=== PATIENT | female | born 1970 | race Caucasian/White ===

== ENCOUNTER 2018-07-30 14:27 | Inpatient (IN) | payer MEDICAID ==
[2018-07-30 14:27] VITALS: BMI 31.3
[2018-07-30 15:04] VITALS: O2SAT 99
--- NOTE | 2018-07-30 17:51 | ED PDOC ---
HPI: Psych/Substance Abuse Time Seen by Provider: 07/30/18 15:12 Chief Complaint (Nursing): Psychiatric Evaluation Chief Complaint (Provider): Psychiatric Evaluation History Per: Patient History/Exam Limitations: no limitations Additional Complaint(s): 48 year old female, with a history of schizoaffective disorder, anxiety, and PTSD, presents to the ED saying she is off her medications for 6 months. Patient reports [place] [facility]. She states she wanted to change things up so has not seen anyone or been on medications for the past 6 months. She reports she does not feel in control and is nervous that she will hurt someone; has no direct plan. Denies suicidal ideation. PMD: Tiffanie Griffin Past Medical History Reviewed: Historical Data, Nursing Documentation, Vital Signs Vital Signs: Last Vital Signs Temp Pulse 76 07/30/18 14:58 Resp 18 07/30/18 14:58 BP 162/69 H 07/30/18 14:58 Pulse Ox 99 07/30/18 14:58 - Medical History PMH: Depression, Diabetes, Gastritis, HIV, HTN - Surgical History Surgical History: No Surg Hx - Family History Family History: States: Unknown Family Hx - Home Medications Home Medications: Ambulatory Orders Medication Instructions Recorded No Known Home Med 06/28/12 - Allergies Allergies/Adverse Reactions: Allergies Allergy/AdvReac Type Severity Reaction Status Date / Time No Known Allergies Allergy Verified 06/28/12 23:21 Review of Systems ROS Statement: Except As Marked, All Systems Reviewed And Found Negative Psych: Positive for: Other (homicidal ideation). Negative for: Suicidal ideation Physical Exam - Reviewed Nursing Documentation Reviewed: Yes Vital Signs Reviewed: Yes - Physical Exam Appears: Positive for: Non-toxic, No Acute Distress Head Exam: Positive for: ATRAUMATIC, NORMOCEPHALIC Skin: Positive for: Normal Color, Warm, Dry Eye Exam: Positive for: Normal appearance Neck: Positive for: Normal, Painless ROM Cardiovascular/Chest: Positive for: Regular Rate, Rhythm Respiratory: Positive for: Normal Breath Sounds. Negative for: Wheezing, Respiratory Distress Gastrointestinal/Abdominal: Positive for: Normal Exam, Soft. Negative for: Tenderness Extremity: Positive for: Normal ROM Neurologic/Psych: Positive for: Alert, Oriented. Negative for: Motor/Sensory Deficits - Laboratory Results Result Diagrams: 07/30/18 19:50 07/30/18 19:50 - ECG Interpretation Of ECG: NSR at 70 bpm, no acute ischemic changes, QTc 449ms O2 Sat by Pulse Oximetry: 99 (RA) Pulse Ox Interpretation: Normal Medical Decision Making Medical Decision Making: Initial Plan: --ECG --Alcohol serum stat --CMP --Drug screen --Urine --CBC --Chest X-ray --1:1 observation --Urinalysis Patient evaluated by crisis. Discussed patient with Dr. Farrell and will admit patient with diagnosis of schizoaffective disorder and major depression. 21:37 Chest X-ray showed no acute findings. Labs as above. Patient with mild hyperglycemia. AG of 10. Will give subcutaneous insulin. Will recheck sugar before patient goes to the floor. Scribe Attestation: Documented by Riccardo Sutton acting as a scribe for Siena ESCAMILLA. Provider Scribe Attestation: All medical record entries made by the Scribe were at my direction and personally dictated by me. I have reviewed the chart and agree that the record accurately reflects my personal performance of the history, physical exam, medical decision making, and the department course for this patient. I have also personally directed, reviewed, and agree with the discharge instructions Disposition - Clinical Impression Clinical Impression: Schizo affective schizophrenia, Depression - Patient ED Disposition Is Patient to be Admitted: Yes Discussed With : - Disposition Disposition Time: 21:43 Condition: STABLE
[2018-07-30 20:00] LABS: BASO % 0.6 % (0.0-2.0); EOS # 0.1 K/uL (0.0-0.7); EOS % 1.4 % (0.0-4.0); HEMOGLOBIN 14.6 g/dL (12.0-16.0); LYMPH # 2.2 K/uL (1.0-4.3); LYMPH % 39.7 % (20.0-40.0); MEAN CELL VOLUME 82.3 fl (81.0-99.0); MEAN CORPUSCULAR HEMOGLOBIN 28.1 pg (27.0-31.0); MEAN CORPUSCULAR HGB CONC 34.1 g/dL (33.0-37.0); MEAN PLATELET VOLUME 9.2 fl (7.2-11.7); MONO # 0.4 K/uL (0.0-0.8); MONO % 7.2 % (0.0-10.0); NEUT # 2.8 K/uL (1.8-7.0); NEUT % 51.1 % (50.0-75.0); NRBC % 0.2 % (0.0-0.0); RBC 5.22 Mil/uL (3.80-5.20); WHITE BLOOD COUNT 5.4 K/uL (4.8-10.8)
[2018-07-30 20:10] LABS: ALB/GLOB RATIO 1.2 (1.0-2.1); ALBUMIN 4.6 g/dL (3.5-5.0); ALT/SGPT 53 U/L (9-52); AST/SGOT 42 U/L (14-36); BLOOD UREA NITROGEN 10 mg/dl (7-17); GFR NON-AFRICAN AMERICAN > 60
[2018-07-30] MEDS ORDERED: Insulin Regular 100 units/ml IV STA (21:17)
[2018-07-30] MEDS ORDERED: Sodium Chloride 0.9% 1,000 ML IV SCH (21:30)
[2018-07-30] MEDS ORDERED: Insulin Regular 100 units/ml SC STA (21:31)
[2018-07-30 22:02] LABS: SQUAMOUS EPITHIAL 5 /hpf (0-5); URINE BACTERIA RARE (<OCC); URINE BILIRUBIN NEGATIVE (NEGATIVE); URINE BLOOD NEGATIVE (NEGATIVE); URINE CLARITY CLOUDY (Clear); URINE COLOR YELLOW (YELLOW); URINE GLUCOSE (UA) NEG (NEGATIVE); URINE LEUKOCYTE ESTERASE NEG Leu/uL (Negative); URINE PROTEIN 30 mg/dL (NEGATIVE); URINE UROBILINOGEN 0.2-1.0 mg/dL (0.2-1.0)
[2018-07-30 22:11] LABS: BARBITURATES, UR NEGATIVE (NEGATIVE); BENZODIAZEPINES, UR NEGATIVE (NEGATIVE); OPIATES, UR NEGATIVE (NEGATIVE); PHENCYCLIDINE, UR NEGATIVE (NEGATIVE)
[2018-07-30] MEDS ORDERED: DiphenhydrAMINE 50 mg/ml Inj IM PRN (23:55)
[2018-07-30] MEDS ORDERED: Magnesium Hydroxide Susp 30 ml UD PO PRN (23:55)
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
[2018-07-31] MEDS: Alum-Mag Hydrox-Simethicone Susp (30 mL) PO PRN (08:10)
[2018-07-31] MEDS: Insulin Regular 100 units/ml SC SCH ×4 (08:36→21:26)
[2018-07-31 08:54] LABS: T4 8.49 ug/dl (5.5-11.0)
--- NOTE | 2018-07-31 09:17 | RAD ---
Date of service: 07/30/2018 HISTORY: clearance COMPARISON: No prior. FINDINGS: LUNGS: No active pulmonary disease. PLEURA: No significant pleural effusion identified, no pneumothorax apparent. CARDIOVASCULAR: No aortic atherosclerotic calcification present. Normal cardiac size. No pulmonary vascular congestion. OSSEOUS STRUCTURES: No significant abnormalities. VISUALIZED UPPER ABDOMEN: Normal. OTHER FINDINGS: None. IMPRESSION: No acute cardiopulmonary disease appreciated.
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
[2018-07-31] MEDS ORDERED: Dextrose 50% SYRINGE Inj (50 ml) IV PRN (13:27)
[2018-07-31] MEDS ORDERED: Glucagon Recombinant 1 mg Inj IM PRN (13:27)
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
[2018-07-31] MEDS ORDERED: Haloperidol Lactate 2 mg/ml Liquid PO PRN (18:00)
[2018-07-31] MEDS ORDERED: Lactulose 10 gm/15 ml Syrup PO PRN (18:28)
--- NOTE | 2018-07-31 19:48 | CARD ---
APPROVED REPORT Date of service: 07/30/2018 EKG Measurement Heart [id number] MD [id number] <Conclusion> Normal sinus rhythm Normal ECG
[2018-07-31] MEDS ORDERED: Insulin Regular 100 units/ml SC STA (20:49)
[2018-08-01] MEDS: Insulin Regular 100 units/ml SC SCH ×4 (08:43→22:00)
[2018-08-01 11:24] LABS: % CD4 (T HELPER CELL) 41 Percent (30-61); % CD8 (SUPPRESSOR T CELL) 36 Percent (12-42); ABSOLUTE CD4 CELLS 800 Cells/mcL (490-1740); ABSOLUTE CD8 CELLS 701 Cells/mcL (180-1170); ABSOLUTE LYMPHOCYTES 1975 Cells/mcL (850-3900); HELPER/SUPPRESSOR RATIO 1.14 Ratio (0.86-5.00)
[2018-08-01 13:17] LABS: HEPATITIS B SURFACE AG Negative (NEGATIVE)
[2018-08-01 13:23] LABS: HEPATITIS A IGM NEGATIVE (NEGATIVE); HEPATITIS B CORE AB NEGATIVE (NEGATIVE)
[2018-08-01 14:08] LABS: HEPATITIS C ANTIBODY REACTIVE (NEGATIVE)
--- NOTE | 2018-08-01 14:47 | PCM.PYCHPN ---
Psychiatric Progress Note - Psychiatric Progress Note Patient seen today, length of contact: pt evaluated discussed with team chart reviewed Patient Chief Complaint: I still get angry Problems Identified/Issues Discussed: pt evaluated with treatment team , continues to be depressed, reported poor appetite, early insomnia, continues to experience non command auditory hallucinations, putting her down, making her irritable angry and depressed, also reported low interest and motivation, not attending to personal hygiene discussed with pt gradual increase in lexapro and risperidone and adding trazodone , no reported side effects, pt denied active thoughts of self harm on the unit, denied homicidal ideation Medical Problems: multiple hospitalizations, currently non compliant DSM 5 Symptoms Update: schizoaffective disorder Medication Change: Yes (increase risperidone ) Medical Record Reviewed: Yes Mental Status Examination - Cognitive Function Orientation: Person, Place, Situation Attention: WNL Concentration: Poor Association: WNL Fund of Knowledge: Poor Decription of patient's judgement and insights: partial insight , fair judgment - Mood Mood: Depressed, Anxious - Affect Affect: Constricted, Depressed - Speech Speech: Soft - Formal Thought Process Formal Thought Process: Hallucinations, Delusions, Paranoia - Suicidal Ideation Suicidal Ideation: No - Homicidal Ideation Homicidal Ideation: Yes Goal/Treatment Plan - Goal/Treatment Plan Need for Continued Stay: Severe depression anxiety, Discharge may exacerbated symptoms Progress Toward Problem(s) and Goals/Treatment Plan: lexapro 10mg increase gradually increase risperidone 3mg cogentin 1mg CBT group and supportive therapy
[2018-08-01] MEDS: Alum-Mag Hydrox-Simethicone Susp (30 mL) PO PRN (21:16)
[2018-08-02] MEDS: Insulin Regular 100 units/ml SC SCH ×4 (09:11→21:53)
--- NOTE | 2018-08-02 15:19 | PCM.PYCHPN ---
Psychiatric Progress Note - Psychiatric Progress Note Patient seen today, length of contact: pt evaluated discussed with team chart reviewed Patient Chief Complaint: I am so sad about my children Problems Identified/Issues Discussed: pt evaluated presenting with depressed mood and affect , tearful stating she regrets having poor relation with her children also distressed because of her financial situation, CBT provided, discussed with pt increasing dose of lexapro, also encouraged to attend groups, pt reported partial clearing of the auditory hallucinations , discussed initiating Infectous disease consult for starting HIV medications , pt denied active thoughts of self harm on the unit, denied homicidal ideation Medical Problems: multiple hospitalizations, currently non compliant Medication Change: Yes (increase lexapro) Medical Record Reviewed: Yes Mental Status Examination - Cognitive Function Orientation: Person, Place, Situation Attention: WNL Concentration: Poor Association: WNL Fund of Knowledge: Poor Decription of patient's judgement and insights: partial insight , fair judgment - Mood Mood: Depressed, Anxious - Affect Affect: Constricted, Depressed - Speech Speech: Soft - Formal Thought Process Formal Thought Process: Hallucinations, Delusions, Paranoia - Suicidal Ideation Suicidal Ideation: No - Homicidal Ideation Homicidal Ideation: Yes Goal/Treatment Plan - Goal/Treatment Plan Need for Continued Stay: Severe depression anxiety, Discharge may exacerbated symptoms Progress Toward Problem(s) and Goals/Treatment Plan: increase lexapro 15mg increase gradually risperidone 3mg cogentin 1mg CBT group and supportive therapy follow up on Infectous disease consult
--- NOTE | 2018-08-02 18:25 | CP.PCM.PN ---
Subjective - Date & Time of Evaluation Date of Evaluation: 08/02/18 Time of Evaluation: 18:10 - Subjective Subjective: I D NOTE PATIENT SEEN ,EMR REVIEWED PATIENT c HIV WHO HAS NOT TAKEN ARVs IN 3 MONTHS,BUTCD4 COUNT IS 800 VIRAL LOAD IS AWAITED SHOULD BE RESTARTED ON [facility]Vs obtain previous medication schedule patient wants to f/u c Objective - Vital Signs/Intake and Output Vital Signs (last 24 hours): Temp Pulse Resp BP Pulse Ox 98.5 F 85 16 138/82 99 08/02/18 09:11 08/02/18 09:11 08/02/18 09:11 08/02/18 09:11 07/30/18 22:43 - Medications Medications: Current Medications Acetaminophen (Tylenol 325mg Tab) 650 mg PO Q4 PRN PRN Reason: Pain 1-7 Last Admin: 07/31/18 00:52 Dose: 650 mg Al Hydrox/Mg Hydrox/Simethicone (Maalox Plus 30 Ml) 30 ml PO Q4 PRN PRN Reason: Dyspepsia Last Admin: 08/01/18 21:16 Dose: 30 ml Benztropine Mesylate (Cogentin) 1 mg PO HS SURINDER Last Admin: 08/01/18 21:06 Dose: 1 mg Dextrose (Dextrose 50% Inj) 0 ml IV STAT PRN; Protocol PRN Reason: Hypoglycemia Protocol Dextrose (Glutose 15) 0 gm PO ONCE PRN; Protocol PRN Reason: Hypoglycemia Protocol Diphenhydramine HCl (Benadryl) 50 mg IM Q6 PRN PRN Reason: Extrapyramidal S/S Unable PO Diphenhydramine HCl (Benadryl) 50 mg PO Q6 PRN PRN Reason: Extrapyramidal Symptoms Last Admin: 07/31/18 17:59 Dose: 50 mg Diphenhydramine HCl (Benadryl) 50 mg PO HS PRN PRN Reason: Sleep Enalapril Maleate (Vasotec) 5 mg PO DAILY SURINDER Last Admin: 08/02/18 09:11 Dose: 5 mg Escitalopram Oxalate (Lexapro) 15 mg PO DAILY SURINDER Glucagon (Glucagen Diagnostic Kit) 0 mg IM STAT PRN; Protocol PRN Reason: Hypoglycemia Protocol Haloperidol Lactate (Haldol) 5 mg IM Q4 PRN PRN Reason: Agitation, Unable to Take PO Haloperidol Lactate (Haldol) 5 mg PO Q4 PRN PRN Reason: Agitation Last Admin: 07/31/18 17:59 Dose: 5 mg Insulin Human Regular (Humulin R) 0 units SC [facility]; Protocol Last Admin: 08/02/18 17:08 Dose: 3 u Lactulose (Enulose) 10 gm PO DAILY PRN PRN Reason: Constipation Lorazepam (Ativan) 2 mg IM Q6 PRN PRN Reason: Anxiety/Agitation,Unable PO Lorazepam (Ativan) 1 mg PO Q8 PRN PRN Reason: Anxiety/Agitation Last Admin: 07/31/18 17:08 Dose: 1 mg Magnesium Hydroxide (Milk Of Magnesia) 30 ml PO HS PRN PRN Reason: Constipation Metformin HCl (Glucophage) 850 mg PO BIDWM [facility] Last Admin: 08/02/18 17:07 Dose: 850 mg Risperidone (Risperdal Tab) 3 mg PO [facility] Last Admin: 08/01/18 21:06 Dose: 3 mg Trazodone HCl (Desyrel) 50 mg PO [facility] Last Admin: 08/01/18 21:06 Dose: 50 mg - Labs Labs: 07/30/18 19:50 07/30/18 19:50
[2018-08-03] MEDS: Insulin Regular 100 units/ml SC SCH ×3 (08:33→17:46)
--- NOTE | 2018-08-03 15:43 | PCM.PYCHPN ---
Psychiatric Progress Note - Psychiatric Progress Note Patient seen today, length of contact: pt evaluated discussed with team chart reviewed Patient Chief Complaint: I had problems with the staff yesterday but I do not remember why Problems Identified/Issues Discussed: pt evaluated , continues to present with labile affect, episodes of tearfullness and depression alternating with brighter affect, forgetful at times, reported by staff to have episodes of paranoid delusions feeling targeted by them, pt presenting with waxing and waning in her mental status possible related to HIV, she reported clearing off of the auditory hallucinations, denied active thoughts of self harm , denied homicidal ideation Medical Problems: multiple hospitalizations, currently non compliant DSM 5 Symptoms Update: schizoaffective disorder rule out HIV induced mood disorder rule out HIV induced psychotic disorder Medication Change: Yes (increase risperidone ) Medical Record Reviewed: Yes Mental Status Examination - Cognitive Function Orientation: Person, Place, Situation Attention: WNL Concentration: Poor Association: WNL Fund of Knowledge: Poor Decription of patient's judgement and insights: partial insight , fair judgment - Mood Mood: Depressed, Anxious - Affect Affect: Constricted, Depressed - Speech Speech: Soft - Formal Thought Process Formal Thought Process: Hallucinations, Delusions, Paranoia - Suicidal Ideation Suicidal Ideation: No - Homicidal Ideation Homicidal Ideation: No Goal/Treatment Plan - Goal/Treatment Plan Need for Continued Stay: Severe depression anxiety, Discharge may exacerbated symptoms Progress Toward Problem(s) and Goals/Treatment Plan: lexapro 15mg increase gradually risperidone 4mg ,cogentin 1mg CBT group and supportive therapy Infectous disease consult appreciated awaiting viral load
[2018-08-03] MEDS: Risperidone M TAB 2 MG PO SCH (21:16)
[2018-08-04] MEDS: Insulin Regular 100 units/ml SC SCH ×5 (06:30→21:11)
[2018-08-04] MEDS ORDERED: Petrolatum, White 1 OZ TP PRN (10:46)
--- NOTE | 2018-08-04 11:00 | PCM.PYCHPN ---
Psychiatric Progress Note - Psychiatric Progress Note Patient seen today, length of contact: Pt evaluated, case discussed w/ team, chart reviewed Patient Chief Complaint: Depression Problems Identified/Issues Discussed: Patient continues to report feeling depressed and anxious. She denies acute AH/VH/paranoia/SI/HI. She denies acute adverse effects to medications. Patient engages appropriately in the community. Medication Change: No Medical Record Reviewed: Yes Consults ordered or reviewed: Medicine consult Mental Status Examination - Cognitive Function Orientation: Person, Place, Situation Attention: WNL Concentration: Poor Association: WNL Fund of Knowledge: Poor Decription of patient's judgement and insights: Improving I/J - Mood Mood: Depressed, Anxious - Affect Affect: Constricted, Depressed - Speech Speech: Appropriate - Formal Thought Process Psychotic Thoughts and Behaviors: Denies acute AH/VH/paranoia - Suicidal Ideation Suicidal Ideation: No - Homicidal Ideation Homicidal Ideation: No Goal/Treatment Plan - Goal/Treatment Plan Need for Continued Stay: Severe depression anxiety, Discharge may exacerbated symptoms Progress Toward Problem(s) and Goals/Treatment Plan: Schizoaffective disorder; rule out HIV induced mood disorder; rule out HIV ind uced psychotic disorder -Continue Lexapro 15 mg PO Daily, Cogentin 1 mg PO HS, Risperdal 4 mg PO HS and Trazodone 50 mg PO HS -Medicine consult -Individual and group therapy -Psychoeducation -Disposition planning
[2018-08-04] MEDS: Risperidone M TAB 2 MG PO SCH (21:10)
[2018-08-05] MEDS: Insulin Regular 100 units/ml SC SCH ×4 (08:31→21:04)
--- NOTE | 2018-08-05 08:44 | PCM.PYCHPN ---
Psychiatric Progress Note - Psychiatric Progress Note Patient seen today, length of contact: Pt evaluated, case discussed w/ team, chart reviewed Patient Chief Complaint: "I'm feeling better." Problems Identified/Issues Discussed: Patient reports feeling less depressed and anxious. She denies acute AH/VH/paranoia/SI/HI. She denies acute adverse effects to medications. Patient engages appropriately in the community. Medication Change: No Medical Record Reviewed: Yes Consults ordered or reviewed: Medicine consult Mental Status Examination - Cognitive Function Orientation: Person, Place, Situation Attention: WNL Concentration: Poor Association: WNL Fund of Knowledge: Poor Decription of patient's judgement and insights: Improving I/J - Mood Mood: Anxious - Affect Affect: Constricted - Speech Speech: Appropriate - Formal Thought Process Formal Thought Process: Circumstantial Psychotic Thoughts and Behaviors: Denies acute AH/VH/paranoia - Suicidal Ideation Suicidal Ideation: No - Homicidal Ideation Homicidal Ideation: No Goal/Treatment Plan - Goal/Treatment Plan Need for Continued Stay: Severe depression anxiety, Discharge may exacerbated symptoms Progress Toward Problem(s) and Goals/Treatment Plan: Schizoaffective disorder; rule out HIV induced mood disorder; rule out HIV induced psychotic disorder -Continue Lexapro 15 mg PO Daily, Cogentin 1 mg PO HS, Risperdal 4 mg PO HS and Trazodone 50 mg PO HS -Medicine consult -Individual and group therapy -Psychoeducation -Disposition planning
[2018-08-05] MEDS: Alum-Mag Hydrox-Simethicone Susp (30 mL) PO PRN (20:34)
[2018-08-05] MEDS: Risperidone M TAB 2 MG PO SCH (21:02)
[2018-08-06] MEDS: Insulin Regular 100 units/ml SC SCH ×4 (09:03→21:29)
--- NOTE | 2018-08-06 15:01 | PCM.PYCHPN ---
Psychiatric Progress Note - Psychiatric Progress Note Patient seen today, length of contact: Pt evaluated, case discussed w/ team, chart reviewed Patient Chief Complaint: I am feeling better today Problems Identified/Issues Discussed: pt evaluated , reported better mood , presenting with brighter affect, thought process more clear and goal directed, , no reported side effects of medications denied active thoughts of self harm , denied homicidal ideation Medical Problems: multiple hospitalizations, currently non compliant DSM 5 Symptoms Update: bipolar disorder depressed Medication Change: No Medical Record Reviewed: Yes Mental Status Examination - Cognitive Function Orientation: Person, Place, Situation Attention: WNL Concentration: WNL Association: WNL Fund of Knowledge: WNL - Mood Mood: Anxious - Affect Affect: Constricted - Speech Speech: Appropriate - Formal Thought Process Formal Thought Process: Circumstantial - Suicidal Ideation Suicidal Ideation: No - Homicidal Ideation Homicidal Ideation: No Goal/Treatment Plan - Goal/Treatment Plan Need for Continued Stay: Severe depression anxiety, Discharge may exacerbated symptoms Progress Toward Problem(s) and Goals/Treatment Plan: lexapro 15mg increase gradually risperidone 4mg ,cogentin 1mg CBT group and supportive therapy Infectous disease consult appreciated
[2018-08-06] MEDS: Risperidone M TAB 2 MG PO SCH (21:26)
[2018-08-06] MEDS: Alum-Mag Hydrox-Simethicone Susp (30 mL) PO PRN (21:30)
[2018-08-07 09:20] VITALS: BP 145/85; PULSE 99; RESP 20; TEMP 97.2
[2018-08-07] MEDS: Alum-Mag Hydrox-Simethicone Susp (30 mL) PO PRN (10:03)
[2018-08-07] MEDS: Insulin Regular 100 units/ml SC SCH (10:41)
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
== END 2018-08-07 11:49 | disposition home or self-care (01) | DRG 430 ==
LOC: H.ER 14:27 → H.ERHOLD 21:20 → H.PSYCH 23:50
PROVIDERS: ADMIT Psychiatry & Neurology Psychiatry; ATTEND Psychiatry & Neurology Psychiatry
PROC: GZHZZZZ Group Psychotherapy (ICD-10-PCS; principal; 2018-07-30)
PROC: GZ58ZZZ Individual Psychotherapy, Cognitive-Behavioral (ICD-10-PCS; 2018-07-30)
PROC: HZ52ZZZ Individual Psychotherapy for Substance Abuse Treatment, Cognitive-Behavioral (ICD-10-PCS; 2018-07-30)
DX: F25.1 Schizoaffective disorder, depressive type (principal); B20 Human immunodeficiency virus [HIV] disease; E11.65 Type 2 diabetes mellitus with hyperglycemia; F31.9 Bipolar disorder, unspecified; F43.10 Post-traumatic stress disorder, unspecified; F12.10 Cannabis abuse, uncomplicated; R45.851 Suicidal ideations; R45.850 Homicidal ideations; K21.9 Gastro-esophageal reflux disease without esophagitis; I10 Essential (primary) hypertension; M06.9 Rheumatoid arthritis, unspecified; K29.70 Gastritis, unspecified, without bleeding; F17.210 Nicotine dependence, cigarettes, uncomplicated; Z91.14 Patient's other noncompliance with medication regimen; Z91.19 Patient's noncompliance with other medical treatment and regimen; Z86.19 Personal history of other infectious and parasitic diseases; Z79.84 Long term (current) use of oral hypoglycemic drugs